=== PATIENT | male | born 1985 | race Caucasian/White ===

== ENCOUNTER 2017-04-18 20:28 | Emergency (ER) | payer OTHER ==
--- NOTE | 2017-04-18 21:10 | PDOC ---
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 He had amniotic fluid that was mixed with blood splash into his face and eyes and is sent to the emergency department for her typical protocol for post exposure prophylaxis. He has no current symptoms. Have you received a tetanus shot in the past 10 years?: Unknown - Patient Home Medications Home Medications: Home Medications NK [No Home Medications Reported] 04/18/17 - Patient Allergies Allergies/Adverse Reactions: Allergies Allergy/AdvReac Type Severity Reaction Status Date / Time No Known Allergies Allergy Verified 04/18/17 21:08 Past Medical History History of Other Communicable Diseases: (denies history of blood borne communicable diseases) ROS - Limitations ROS Limitations: No Limitations Body Fluid Exposure PE - General Appearance General Appearance: REPORTS: Alert, Cooperative, No Acute Distress - Respiratory / CVS Respiratory / CVS: POSITIVE: No Respiratory Distress - Skin Skin: POSITIVE: Dry, Normal For Race - Neurological / Psychological Neuro / Psych: POSITIVE: Oriented X3 Body Fluid Exposure Progress - Patient's Progress MDM / ED Course: Patient is well-appearing and as precaution we will order typical protocol for postexposure prophylaxis. Patient Care Time - Estimated PCT Patient Care Time (In Minutes): 5 Vital Signs - VS Reviewed Vital Signs Reviewed: Yes Discharge Clinical Impression: Exposure to communicable disease Discharge Disposition: Discharged to Home Condition: Good Patient Instructions Given at Discharge: Postexposure Prophylaxis (ED) Additional Instructions: Please follow postexposure prophylaxis protocol.
[2017-04-18 21:59] VITALS: RESP 18; TEMP 98
[2017-04-18 22:06] LABS: HIV ANTIBODY NEGATIVE (N); HIV-1 P24 ANTIGEN NEGATIVE (N)
== END 2017-04-18 21:38 | disposition home or self-care (01) ==
LOC: ER 20:28
DX: Z77.21 Contact with and (suspected) exposure to potentially hazardous body fluids (principal)
CPT/HCPCS: 99282

== ENCOUNTER 2017-04-20 08:02 | Day surgery (SDC) | payer OTHER ==
[~2017-04-20 08:02] MED LIST: LIDOCAINE W/ SODIUM BICARB 0.5 ML SYR ONE; Lactated Ringers 1,000 ML PRIMARY IV ONE; MIDAZOLAM 5 MG/1 ML ONE; ceFAZolin Inj 2gm (Premix) 50 ML IV ONE; fentaNYL Inj 100 MCG/2 ML VIAL ONE
--- NOTE | 2017-04-20 08:48 | MINORPROC ---
Outpatient History & Physical Chief Complaint: Patient has bilateral gynecomastia right greater than left Present Illness: Patient has bilateral gynecomastia right greater than left. Patient has more firm tissue on the right side Past History: No symptoms and past medical history History: General: WNL, HEENT: WNL, Respiratory: WNL, Cardiovascular: WNL, Gastrointestinal: WNL, Neurological: WNL, Endocrine: WNL, Other: ABN (bilateral gynecomastia right greater than left) Physical Exam: General: WNL, Head/Neck: WNL, Breasts: ABN (bilateral gynecomastia right greater than left), Chest/Lungs: WNL, Heart: WNL Home Medications: Home Medications Medication Instructions Recorded Confirmed Type NK [No Home Medications Reported] 04/18/17 04/20/17 History Allergies/Adverse Reactions: Allergies Allergy/AdvReac Type Severity Reaction Status Date / Time hydrocodone bitartrate Allergy Intermediate ITCHING Verified 04/20/17 08:13 [From Vicodin] sunflower seeds Allergy Severe Anaphylaxis Uncoded 04/20/17 08:13 Impression / Plan: Gynecomastia At this point would do a right gynecomastia mastectomy. Will try to do this subcutaneously through a circumareolar incision. Patient does understand he may get a counterincision completely the surgery. Risks benefits surgery were explained to him he understands these. Transfusion: Transfusion Not Anticipated Anesthesia Plans: General ASA Class: Class 1 : Normal, Healthy Patient
[2017-04-20] MEDS ORDERED: SODIUM BICARBONATE 8.4% - 50 ML VIAL ONE (09:00)
[2017-04-20] MEDS ORDERED: BUPivacaine Inj 0.5% PF (5mg/ml) 10ml vial ONE (09:00)
[2017-04-20] MEDS ORDERED: BUPivacaine Inj 0.25% PF - 10ml vial ONE (09:19)
[2017-04-20] MEDS ORDERED: KETOROLAC 30 MG/1 ML VIAL ONE (09:38)
--- NOTE | 2017-04-20 09:52 | GEN.OPNOTE ---
Operative Note Surgery Date: 04/20/17 Preoperative Diagnosis: Gynecomastia Postoperative Diagnosis: Gynecomastia Procedure: Mastectomy for gynecomastia right Surgeon: Manoj Mcqueen MD Anesthesia Provider: Randy Sheehan CRNA Anesthesia Type: Local, MAC Estimated Blood Loss (mL): 20 Fluids: 2 g of Ancef. LR please see anesthesia notes in EMR Pathology: Breast tissue sent for pathology Indications: Patient has right-sided gynecomastia Findings: Right-sided gynecomastia Operative Summary: Patient is brought in operative room. Placed in supine position. Given IV sedation. Prepped draped sterile fashion. Timeout performed per protocol. I then infiltrated 15 mL of quarter percent Marcaine for local anesthetic. This was done around the area of the gynecomastia. I then made a circumareolar incision. Ice dissected out the gynecomastia from the underneath the nipple. Then working laterally dissected out the complete area gynecomastia. This extended from the nipple to the latissimus dorsi muscle. After getting adequate hemostasis, then checked there is little bit additional gynecomastia underneath the nipple. This is again removed. Hemostasis was obtained. Wound closed with 4-0 Vicryl continues running subcuticular stitch. Steri-Strips are applied sterile dressings were applied. Patient transferred recovery room stable condition. Counts were correct.
[2017-04-20] MEDS ORDERED: ONDANSETRON 4 MG/2 ML VIAL IVP PRN (09:54)
[2017-04-20] MEDS ORDERED: NALOXONE IVP PRN (09:54)
[2017-04-20] MEDS ORDERED: KETOROLAC 15 MG/1 ML VIAL IVP PRN (09:54)
[2017-04-20] MEDS ORDERED: oxyCODONE-ACETAMINOPHEN 5-325 TAB PO PRN (09:54)
[2017-04-20] MEDS ORDERED: NORMAL SALINE FLUSH IVP PRN (09:54)
[2017-04-20] MEDS ORDERED: MORPHINE SULFATE 2 MG/1 ML IVP PRN (09:54)
[2017-04-20] MEDS ORDERED: NORMAL SALINE 10 ML SYRINGE FLUSH IVP PRN (09:54)
[2017-04-20] MEDS ORDERED: Lactated Ringers 1,000 ML PRIMARY IV SCH (10:00)
[2017-04-20 11:06] VITALS: TEMP 96.9
[2017-04-20 11:15] VITALS: RESP 14
== END 2017-04-20 10:52 | disposition home or self-care (01) ==
LOC: SDSC 08:02
PROVIDERS: ATTEND Surgery
DX: N62 Hypertrophy of breast (principal)
CPT/HCPCS: 19300; J0690; J1885; J2250; J2704; J3010; J3490; S0020; J7120